=== PATIENT | male | born 1935 | race Caucasian/White ===

== ENCOUNTER → 2017-11-20 | Outpatient (CLI) | payer MEDICARE ==
[~2017-11-20] MED LIST: ASPI81CH59 PO; CLOP75TA28 PO; LOSA100T33 PO; OMEP20CA74 PO; SIMV-13 PO
== END | disposition home or self-care (01) ==
LOC: Rad HDHVI 14:46
PROVIDERS: ATTEND Internal Medicine Cardiovascular Disease
DX: I08.0 Rheumatic disorders of both mitral and aortic valves (principal)
CPT/HCPCS: 93306

== ENCOUNTER → 2017-11-23 | Outpatient (CLI) | payer MEDICARE ==
[~2017-11-23] MED LIST changes: +IOHEXOL 350 MG/ML 100ML IJ ONE; +diphenhdrAMINE HCL 25 MG CAP PO ONE; +methylPREDNISolone SOD SUCC 125 MG/2 ML VL IV ONE; +methylPREDNISolone SOD SUCC 125 MG/2 ML VL ONE
[2017-11-23 10:53] VITALS: BP 178/82
[2017-11-23 12:15] VITALS: BP 181/78
== END | disposition home or self-care (01) ==
LOC: Rad HDHVI 10:28
PROVIDERS: ATTEND Internal Medicine Cardiovascular Disease
DX: I51.7 Cardiomegaly (principal); R07.89 Other chest pain; I10 Essential (primary) hypertension; R06.02 Shortness of breath; E78.5 Hyperlipidemia, unspecified; I49.8 Other specified cardiac arrhythmias; I49.40 Unspecified premature depolarization; I63.50 Cerebral infarction due to unspecified occlusion or stenosis of unspecified cerebral artery
CPT/HCPCS: 71275; 82565; 96374; G0463; J2930; Q9967

== ENCOUNTER → 2017-12-06 | Outpatient (CLI) | payer MEDICARE ==
[~2017-12-06] VITALS: Ht 177.8 cm; Wt 74.4 kg
[~2017-12-06] MED LIST changes: -IOHEXOL 350 MG/ML 100ML IJ ONE; -diphenhdrAMINE HCL 25 MG CAP PO ONE; -methylPREDNISolone SOD SUCC 125 MG/2 ML VL IV ONE; -methylPREDNISolone SOD SUCC 125 MG/2 ML VL ONE
== END | disposition home or self-care (01) ==
LOC: Rad HDHVI 09:53
PROVIDERS: ATTEND Internal Medicine Cardiovascular Disease
DX: J44.9 Chronic obstructive pulmonary disease, unspecified (principal); J20.9 Acute bronchitis, unspecified; I49.5 Sick sinus syndrome; Z95.1 Presence of aortocoronary bypass graft
CPT/HCPCS: 78452; 93017; 96374; A9500